=== PATIENT | male | born 1945 | race Caucasian/White ===

== ENCOUNTER → 2017-07-20 10:26 | Outpatient (CLI) | payer MEDICARE, OTHER | END | disposition home or self-care (01) | LOC: D.CT 10:26 | DX: R10.9 Unspecified abdominal pain (principal) ==

== ENCOUNTER → 2018-06-28 07:44 | Outpatient (CLI) | payer MEDICARE | END | disposition home or self-care (01) | LOC: D.CT 07:44 | DX: R42 Dizziness and giddiness (principal) ==

== ENCOUNTER → 2019-05-30 08:12 | Outpatient (CLI) | payer MEDICARE | END | disposition home or self-care (01) | LOC: D.RAD 08:12 | PROVIDERS: ATTEND Family Medicine | DX: R10.9 Unspecified abdominal pain (principal) ==

== ENCOUNTER → 2020-07-01 07:57 | Outpatient (CLI) | payer MEDICARE | END | disposition home or self-care (01) | LOC: D.HCCARDIO 07:57 | PROVIDERS: ATTEND Internal Medicine Cardiovascular Disease | DX: R06.00 Dyspnea, unspecified (principal) ==

== ENCOUNTER 2020-07-17 06:47 | Day surgery (SDC) | payer MEDICARE ==
[~2020-07-17] VITALS: Ht 180.3 cm; Wt 94.5 kg
--- NOTE | ~2020-07-17 | HEMODYNAMI ---
PATIENT:USMAN FONSECA MEDICAL RECORD: [id number] : 45 [id number] ADMISSION DATE: 07/17/20 Generatedon:07/17/20209:28 Patient name: USMAN FONSECA Patient #: [id number] SSN: [id number] : 1945 Date of study: 07/17/2020 Page: Of Hemodynamic Procedure Report Patient Data Patient Demographics Procedure consent was obtained First Name: USMAN Gender: Male Last Name: RAYMUNDO : 1945 [facility] Initial: B Age: 75 year(s) Patient #: [id number] Race: SSN: [id number] Additional ID: [id number] Contact details [address]: [address] [place] [address] State: [place] City: [place] Zip code: [address] Past Medical History Performed procedures and imaging results Date Procedure Procedure Results Comments 07/01/2020 Stress testing Positive->Intermediate with SPECT MPI risk Allergies Allergen Reaction Date Comments Reported Other allergy 07/17/2020 ASPIRIN Admission Admission Data Admission Date: 07/17/2020 Admission Time: 6:47 [facility] #: [id number] Lab Results Lab Result Date: 07/17/2020 Lab Result Time: 0:00 Biochemistry Name Units Result Min Max Creatinine mg/dl 1.3 --(---*)-- 0.6 1.3 eGFR ml/min 57 *-(----)-- 90 120 NONAFRICAN CBC Name Units Result Min Max Hematocrit % 44.7 --(*---)-- 42 54 Hemoglobin g/dl 15.7 --(--*-)-- 13.5 17.5 Procedure Procedure Types Cath Procedure Diagnostic Procedure LHC LHC w/Coronaries Sedation Charges Moderate Sedation up to 15 minutes Procedure Description Procedure Date Procedure Date: 07/17/2020 Procedure Start Time: 9:14 Procedure End Time: 9:26 Procedure Staff Name Function Diego Sawyer MD Performing Physician Chuyita Alfredo RT Monitor Citlaly Lindo RT Scrub Shantel Sawyer RN Nurse Procedure Data Cath Procedure Fluoroscopy Diagnostic fluoroscopy Total fluoroscopy Time: 2.3 time: 2.3 min min Diagnostic fluoroscopy Total fluoroscopy dose: 586 dose: 586 mGy mGy Contrast Material Contrast Material Type Amount (ml) Isovue 300 56 Entry Location Entry Primary Successful Side Size Upsize Upsize Entry Closure Rice ccessful Closure Location (Fr) 1 (Fr) 2 (Fr) Remarks Device Remarks Radial Right 6 Fr Mechanical artery Short Compression Estimated blood loss: 10 ml Diagnostic catheters Device Type Used For End Catheter Placement DIAGNOSTIC Js 110cm Procedure 5Fr catheter ([id number]) Procedure Complications No complications Procedure Medications Medication Administration Route Dosage 0.9% NaCl I.V. 100 ml/hr Oxygen etCO2 Nasal cannula 2 l/min Lidocaine 2% added to field 20 Heparin Flush Bag added to field 2 bags (1000units/500ml NS) Radial Cocktail added to field 1 syringe (Verapamil 2mg/Nitro 400mcg/Heparin 1500units) Versed I.V. 2 mg Fentanyl I.V. 50 mcg Fentanyl I.V. 50 mcg Hemodynamics Rest HGB: 15.7 (g/dl) Heart Rate: 84 (bpm) Pressure Samples Time Site Value (mmHg) Purpose Heart Use Rate(bpm) 9:17 LV 161/-20,4 Snapshot 93 9:18 AO 121/59(84) Pullback 92 9:18 LV 135/-7,6 Pullback 92 Gradients Valve Time Site 1 Site 2 Mean SEP/DFP Peak To Heart Use (mmHg) (sec/min) Peak Rate (mmHg) (bpm) Aortic 9:18 LV AO 14 7 14 92 135/-7,6 121/59(84) Calculations Valve P-P Mean Valve Index Valve Source Name Gradient Area Flow (cm2) Aortic 14 14 14 14 Snapshots Pre Cath Intra NCS Post Cath Vital Signs Time Heart Resp SPO2 etCO2 NIBP (mmHg) Rhythm Pain Sedation Rate (ipm) (%) (mmHg) Status Level (bpm) 8:54:05 84 13 97 32.1 154/88(130) NSR 0 (11) 10(A) , No pain 8:58:25 78 10 96 38.1 140/80(120) NSR 0 (11) 10(A) , No pain 9:02:45 75 11 97 38.8 136/74(104) NSR 0 (11) 10(A) , No pain 9:07:05 77 13 97 35.8 137/82(112) NSR 0 (11) 10(A) , No pain 9:11:25 78 14 97 36.6 138/78(116) NSR 0 (11) 10(A) , No pain 9:15:48 83 13 97 37.3 155/78(116) NSR 0 (11) 10(A) , No pain 9:20:06 85 12 98 35.1 128/76(88) NSR 0 (11) 10(A) , No pain 9:24:24 95 11 97 35.8 137/73(100) NSR 0 (11) 10(A) , No pain Medications Time Medication Route Dose Verified Delivered Reason Notes Ef fectiveness by by 8:48:49 0.9% NaCl I.V. 100 Diego Shantel used for ml/hr Silverio Sawyer water treatment plant supervisor 8:48:55 Oxygen etCO2 2 l/min Diego Shantel used for Nasal Silverio Sawyer procedure cannula RN 8:49:01 Lidocaine 2% added 20ml Diego Diego for local to vial Silverio Sawyer MD anesthetic field 8:49:05 Heparin Flush added 2 bags Diego Diego used for Bag to Silverio Sawyer MD procedure (1000units/500ml field NS) 8:49:11 Radial Cocktail added 1 Diego Diego used for (Verapamil to syringe Silverio Sawyer MD procedure 2mg/Nitro field 400mcg/Heparin 1500units) 9:13:47 Versed I.V. 2 mg Diego Shantel for Silverio Sawyer sedation RN 9:13:56 Fentanyl I.V. 50 mcg Diego Shantel for Silverio Sawyer sedation RN 9:18:04 Fentanyl I.V. 50 mcg Diego Shantel for Silverio Sawyer sedation machine milker Log Time Note 7:14:33 Patient allergic to Other allergyASPIRIN 8:26:51 Informed consent obtained and on chart 8:27:30 Procedure Status Elective Heart Cath (OP). 8:27:32 Chuyita GARCIA(R) sent for patient. Start room use. 8:27:33 Time tracking: Regular hours (M-F 7:00 - 5:00) 8:27:37 Plan of Care:Hemodynamics will remain stable., Cardiac rhythm will remain stable., Comfort level will be maintained., Respiratory function will remain adequate., Patient/ family verbilizes understanding of procedure., Procedure tolerated without complication., Recovers from procedure without complications.. 8:28:37 H&P Date Dictated: 07/17/2020 Within 30 days and on chart.. 8:28:56 Patient NPO since Midnight. 8:28:59 Is the patient allergic to Iodine/contrast media? No. 8:29:01 Was the patient premedicated? N/A 8:29:45 Patient diabetic? Yes. 8:30:01 If diabetic: On Metformin? No 8:35:16 Lab results completed and on chart. 8:36:04 Lab Result : Creatinine 1.3 mg/dl 8:36:04 Lab Result : eGFR NONAFRICAN 57 ml/min 8:36:04 Lab Result : Hemoglobin 15.7 g/dl 8:36:05 Lab Result : Hematocrit 44.7 % 8:36:24 Stress Test: yes; abnormal INFERIOR 8:42:52 Patient received from Pre/Post Procedure Room to CCL 1 Alert and oriented. Tansferred to table in Supine position. 8:42:54 Warm blankets applied, and oc hugger turned on for patient comfort. 8:42:55 Correct patient and procedure confirmed by team. 8:48:49 0.9% NaCl 100 ml/hr I.V. was administered by Shantel Sawyer RN; used for procedure; Verbal order read back and verified. 8:48:55 Oxygen 2 l/min etCO2 Nasal cannula was administered by Shantel Sawyer RN; used for procedure; Verbal order read back and verified. 8:49:01 Lidocaine 2% 20ml vial added to field was administered by Diego Sawyer MD; for local anesthetic; Verbal order read back and verified. 8:49:05 Heparin Flush Bag (1000units/500ml NS) 2 bags added to field was administered by Diego Sawyer MD; used for procedure; Verbal order read back and verified. 8:49:11 Radial Cocktail (Verapamil 2mg/Nitro 400mcg/Heparin 1500units) 1 syringe added to field was administered by Diego Sawyer MD; used for procedure; Verbal order read back and verified. 8:52:48 ECG and BP/O2 sat monitors applied to patient. 8:52:49 Baseline sample Acquired. 8:52:49 Vital chart was started 8:52:53 Rhythm: sinus rhythm 8:52:56 Full Disclosure recording started 8:52:57 Pre-procedure instructions explained to patient. 8:53:10 Previous problem with sedation/anesthesia? Yes NAUSEA 8:53:13 Snore? Yes 8:53:35 Sleep apnea? No 8:53:42 Patient pain scale 0/10 ?. 8:55:24 IV patent on arrival in left antecubital with 0.9% NaCl at [facility]. 8:55:31 Right Radial & Right Groin area was prepped with chlora-prep and draped in sterile fashion 8:55:32 Alarms reviewed by RRic N. 8:55:33 Sharps counted by scrub and verified by R.N. 8:55:34 Physician paged 9:11:58 Physician arrived 9:12:00 --------ALL STOP TIME OUT------ 9:12:09 Final Timeout: patient, procedure, and site verified with staff and physician. All members of the team are in agreement. 9:12:12 Right Radial & Right Groin site verified by team. 9:12:17 Fire Safety Assessment: A--An alcohol-based skin anteseptic being used preoperatively., C--Open oxygen or nitrous oxide is being used., D--An ESU, laser, or fiber-optic light is being used. 9:12:22 Physical assessment completed. ASA score P 2 - A patient with mild systemic disease as per Diego Sawyer MD. 9:12:26 3a) 45-59 Moderately reduced kidney function. 9:12:32 Maximum allowable contrast dose (3.7 X eGFR X 0.75)158 ml. 9:12:38 Sedation plan: IV Moderate Sedation Medication:Versed, Fentanyl 9:12:42 Use device set Radial Dx or PCI 9:12:45 ACIST Syringe (63921) opened to sterile field. 9:12:46 Medline Cath Pack ([id number]) opened to sterile field. 9:12:46 Bag Decanter (2002) opened to sterile field. 9:12:46 ACIST Hand Control (38041) opened to sterile field. 9:12:47 ACIST Manifold (23437) opened to sterile field. 9:12:49 MBrace Wrist Support ([id number]) opened to sterile field. 9:12:51 NEEDLE Cook 21G 4cm Radial ([id number]) opened to sterile field. 9:12:53 EMERALD Guide Wire (502-500) opened to sterile field. 9:12:54 SHEATH 6FR RAIN (9310306) opened to sterile field. 9:13:01 Procedure started. 9:13:47 Versed 2 mg I.V. was administered by Shantel Sawyer RN; for sedation; Verbal order read back and verified. 9:13:56 Fentanyl 50 mcg I.V. was administered by Shantel Sawyer RN; for sedation; Verbal order read back and verified. 9:14:00 Local anesthetic to right radial artery with Lidocaine 2% by Diego Sawyer MD.INITIAL ACCESS ONLY 9:15:49 A 6 Fr Short sheath was inserted into the Right Radial artery 9:16:17 A DIAGNOSTIC Js 110cm 5Fr catheter ([id number]) was advanced over the wire and used for Procedure. 9:18:04 Fentanyl 50 mcg I.V. was administered by Shantel Sawyer RN; for sedation; Verbal order read back and verified. 9:18:27 EF : 60 % 9:18:59 LCA angiography performed. 9:21:09 RCA angiography performed. 9:21:31 Catheter removed. 9:21:50 ZEPHYR REGULAR TR BAND (855145) opened to sterile field. 9:23:04 Sheath removed intact; hemostasis achieved with Mechanical Compression to the Right Radial artery. 9:23:08 Procedure ended.(Physican Out) 9:23:23 Fluoroscopy time 02.30 minutes. 9:23:28 Fluoroscopy dose: 586 mGy 9:23:28 Flurop Dose total: 586 9:23:44 Dose Area Product 67146 mGy/cm. 9:23:49 Contrast amount:Isovue 300 56ml. 9:23:55 Maximum allowable dose exceeded? No. 9:24:07 Sharps counted by scrub and verified by R.N. 9:24:20 [place] band inflated with 10cc of air. 9:24:26 Insertion/operative site no bleeding no hematoma. 9:24:32 Post right radial artery:stable 9:24:36 Post Procedure Pulses reassessed and unchanged 9:24:44 Post-procedure physical assessment completed. ASA score P 2 - A patient with mild systemic disease as per Diego Sawyer MD. 9:24:49 Post procedure rhythm: unchanged. 9:25:00 Estimated blood loss: 10 ml 9:25:03 Post procedure instruction explained to patient.Patient verbalizes understanding. 9:25:40 Procedure type changed to Cath procedure, Diagnostic procedure, LHC, LHC w/Coronaries, Sedation Charges, Moderate Sedation up to 15 minutes 9:25:42 Procedure and supply charges have been captured, reviewed, submitted and are correct. 9:26:04 Procedure Complication : No complications 9:26:07 Vital chart was stopped 9:26:10 [facility] Findings: mild to moderate CAD (<70%) 9:26:21 See physician's report for complete and final results. 9:26:23 Report given to Pre/Post Procedure Room. 9:26:30 Patient transfered to Pre/Post Procedure Room with Stretcher. 9:26:33 Procedure ended. 9:26:33 Full Disclosure recording stopped 9:26:36 End room use (Document Last) 9:27:07 End room use (Document Last) 9:27:29 End room use (Document Last) Device Usage Item Name Manufacture Quantity Catalog Hospital Part Current Minima l Lot# / Number Charge Number Stock Stock Serial# Code ACIST Acist 1 33280 956936 294066 [id number] 20 Syringe Medical (97414) Systems Inc Medline Medline 1 [id number] 663816 33489 000233 5 Cath Pack ([id number]) Bag Microtek 1 395517 16092 119351 5 Decanter Medical Inc. () ACIST Hand Acist 1 09159 061258 815668 155478 5 Control Medical (26886) Systems Inc ACIST Acist 1 78715 532551 700510 183132 5 Manifold Medical (25269) Systems Inc MBrace Advanced 1 140-0250-00 163841 52682 122287 5 Wrist Vascular Support Dynamics ([id number]) NEEDLE OBMedical Medical 1 L04422 988351 750422 600040 5 21G 4cm Radial (F61492) EMERALD Cardinal 1 380-625 908913 451820 921897 5 Guide Wire [facility] (246-304) SHEATH 6FR Cardinal 1 6239751 089733 3539365 233294 5 [facility] (7190378) DIAGNOSTIC Terumo 1 79-3721 441994 504528 349040 5 Js 110cm 5Fr catheter (008411) ZEPHYR Cardinal 1 599197 165245 9222962 578737 5 REGULAR TR Health BAND (493060) Signature Audit [place] Stage Time Signature Unsigned Intra-Procedure 07/17/2020 Chuyita Alfredo 9:27:07 AM RT(R) Intra-Procedure 07/17/2020 Shantel Sawyer 9:27:29 AM RN Intra-Procedure 07/17/2020 Diego Sawyer MD 9:28:04 AM [facility] [address] [place] [id number]
[2020-07-17] MEDS ORDERED: LANTUS INS100 UNITS/ SC (07:41)
[2020-07-17] MEDS ORDERED: HUMALOG 30100 UNITS/ SC (07:41)
[2020-07-17] MEDS ORDERED: AMBIEN10 MG PO (07:41)
[2020-07-17] MEDS ORDERED: ZOCOR40 MG PO (07:42)
[2020-07-17] MEDS ORDERED: LIPOFEN50 MG PO (07:42)
[2020-07-17] MEDS ORDERED: FLOMAX0.4 MG PO (07:42)
[2020-07-17] MEDS ORDERED: CYCLOBENZAPRINE10 MG PO (07:43)
[2020-07-17] MEDS ORDERED: ESOMEPRAZOLE (07:43)
[2020-07-17] MEDS ORDERED: OMEPRAZOLE40 MG PO (07:52)
[2020-07-17 08:07] VITALS: BP 159/83; Ht 180.3 cm; Wt 94.5 kg
[2020-07-17 08:07] LABS: BASOPHILS 0.4 % (0-2); HEMATOCRIT 44.7 % (42.0-54.0); HEMOGLOBIN 15.7 g/dL (13.5-17.5); IMMATURE GRANULOCYTES 0.3 % (0-5); LYMPHOCYTES 28.7 % (15-50); MCH 31.5 pg (26.0-34.0); MCHC 35.1 g/dL (31.0-37.0); MCV 89.8 fL (80.0-100.0); MEAN PLATELET VOLUME 9.2 fL (7.4-10.4); MONOCYTES 11.1 % (2-11); NEUTROPHILS 56.5 % (40-80); PLATELET COUNT 189 10x3/uL (130-400); RBC 4.98 10x6/uL (4.20-6.10); RDW 12.8 % (11.5-14.5)
[2020-07-17 08:21] LABS: ANION GAP 13.8 mmol/L (8-16); CALCIUM 9.1 mg/dL (8.5-10.1); CARBON DIOXIDE 24.3 mmol/L (21.0-32.0); CHOL - HDL RATIO 4.5 ratio (2.3-4.9); CREATININE - SERUM 1.3 mg/dL (0.6-1.3); LDL-HDL RATIO 2.5 ratio (1.5-3.5); POTASSIUM - SERUM 4.1 mmol/L (3.5-5.1)
--- NOTE | 2020-07-17 09:39 | NUR ---
PT ARRIVED BY STRETCHER. PLACED ON MONITORS. ASSESSMENT COMPLETED. VSS AT THIS TIME. CALL LIGHT WITHIN REACH. FAMILY AT BEDSIDE. DR. ORDONEZ ROUNDED AND SPOKE WITH PT'S . UPDATED HER ON PT'S STATUS AND PLAN OF CARE.
--- NOTE | 2020-07-17 09:55 | NUR ---
RIGHT WRIST Z BAND IN PLACE. NO BLEEDING/HEMATOMA NOTED. CALL LIGHT WITHIN REACH. VSS AT THIS TIME. FAMILY AT BEDSIDE. RESTING COMFORTABLY.
--- NOTE | 2020-07-17 10:29 | NUR ---
3cc OF AIR REMOVED FROM Z BAND. NO BLEEDING/HEMATOMA NOTED. CALL LIGHT WITHIN REACH. PT AWAKE AND ALERT. SET UP WITH SANDWICH TRAY AND DRINK AT THIS TIME. DENIES NAUSEA/PAIN.
--- NOTE | 2020-07-17 10:47 | NUR ---
3cc OF AIR REMOVED FROM Z BAND. NO BLEEDING/HEMATOMA NOTED. CALL LIGHT WITHIN REACH. VSS AT THIS TIME. FAMILY AT BEDSIDE.
--- NOTE | 2020-07-17 11:00 | NUR ---
5cc OF AIR REMOVED FROM Z BAND. NO BLEEDING/HEMATOMA NOTED. CALL LIGHT WITHIN REACH. FAMILY AT BEDSIDE.
--- NOTE | 2020-07-17 11:10 | NUR ---
Z BAND REMOVED AND DRESSING APPLIED. NO BLEEDING/HEMATOMA NOTED. VSS AT THIS TIME. PIV D/C'D WITH CATH TIP INTACT. TOLERATED WELL. PT INSTRUCTED TO GET UP AND DRESSED AT THIS TIME. AT BEDSIDE TO ASSIST.
--- NOTE | 2020-07-17 11:20 | NUR ---
PT AMBULATED TO RESTROOM. VOIDED WITHOUT DIFFICULTY. STEADY GAIT NOTED. DISCUSSED DISCHARGE INSTRUCTIONS WITH PT AND PT'S FAMILY. THEY VOICED UNDERSTANDING.
--- NOTE | 2020-07-17 11:30 | NUR ---
RIGHT WRIST DRESSING C/D/I. NO S/S OF HEMATOMA NOTED. PT TAKEN DOWN TO VEHICLE BY WHEELCHAIR. NO S/S OF DISTRESS NOTED. ALL BELONGINGS AND PAPERWORK IN HAND.
== END 2020-07-17 11:30 | disposition home or self-care (01) ==
LOC: D.CATH 06:47
PROVIDERS: ATTEND Internal Medicine Cardiovascular Disease
DX: I20.9 Angina pectoris, unspecified (principal); R94.39 Abnormal result of other cardiovascular function study; E78.5 Hyperlipidemia, unspecified; R06.00 Dyspnea, unspecified; E11.9 Type 2 diabetes mellitus without complications; R42 Dizziness and giddiness